=== PATIENT | female | born 1955 ===

== ENCOUNTER 2020-03-28 19:29 | Emergency (ER) | payer OTHER ==
[~2020-03-28] VITALS: Ht 162.6 cm; Wt 96.6 kg
[2020-03-28] MEDS ORDERED: LOSARTAN POTASS50 MG (19:35)
[2020-03-28] MEDS ORDERED: VITAMIN D350 MC1 (19:36)
== END 2020-03-28 21:37 | disposition home or self-care (01) ==
LOC: ER 19:29
DX: L29.8 Other pruritus (principal); T78.1XXA Other adverse food reactions, not elsewhere classified, initial encounter; X58.XXXA Exposure to other specified factors, initial encounter